=== PATIENT | male | born 1950 | race Caucasian/White ===

== ENCOUNTER → 2020-01-26 | Outpatient (CLI) | payer MEDICARE ==
[~2020-01-26] MED LIST: TAMS.4ER PO
== END | disposition home or self-care (01) ==
LOC: PLD 14:07 → LAB SHORT 14:07
DX: D48.5 Neoplasm of uncertain behavior of skin (principal)
CPT/HCPCS: 88305

== ENCOUNTER → 2024-11-30 | Outpatient (CLI) | payer MEDICARE ==
[2024-11-30 13:10] LABS: Source, Urine Clean Catch
[2024-11-30 15:22] LABS: Appearance, Urine Hazy (Clear); Bilirubin, Urine Neg (Neg); Blood, Urine 5+ (Neg); Color, Urine Yellow (P-Yellow); Glucose Qualitative, Urine Neg (Neg); Ketones, Urine Neg (Neg); Leukocyte Esterase, Urine 1+ (Neg); Nitrite, Urine Neg (Neg); Protein, Urine 1+ (Neg); Specific Gravity, Urine 1.015 (1.003-1.022); Urobilinogen, Urine NORM (Normal)
[2024-11-30 15:53] LABS: Bacteria Few /hpf; Red Blood Cells, Urine 50-100 /hpf (0-2); Squamous Epithelial Cells Rare /hpf (Few)
== END ==
LOC: LAB 13:09 → LAB SHORT 13:09 → LAB FUT 11-06 14:25
PROVIDERS: Urology
DX: D09.0 Carcinoma in situ of bladder (principal)
CPT/HCPCS: 81001; 87086